=== PATIENT | male | born 1975 | race Caucasian/White ===

== ENCOUNTER 2017-09-25 04:55 | Emergency (ER) | payer OTHER ==
[2017-09-25] MEDS: LIDOCAINE 1% (MDV) 10 ML INJ INJ (06:58)
[2017-09-25] MEDS: CEFTRIAXONE 1 GM INJ IM (06:58)
== END 2017-09-25 07:17 | disposition home or self-care (01) ==
LOC: FTE 04:55
DX: M70.42 Prepatellar bursitis, left knee (principal); Y93.9 Activity, unspecified
CPT/HCPCS: 96372; 99284-25

== ENCOUNTER 2018-05-15 08:17 | Emergency (ER) | payer OTHER | END 2018-05-15 09:38 | disposition home or self-care (01) | LOC: FTE 08:17 | DX: K62.89 Other specified diseases of anus and rectum (principal) | CPT/HCPCS: 99284; Z7502 ==

== ENCOUNTER 2018-09-05 13:06 | Day surgery (SDC) | payer OTHER ==
[2018-09-05] MEDS ORDERED: PROPOFOL 40 ML (15:58)
== END 2018-09-05 16:46 | disposition home or self-care (01) ==
LOC: GIL 13:06
DX: K64.8 Other hemorrhoids (principal); E78.5 Hyperlipidemia, unspecified
CPT/HCPCS: 45378